=== PATIENT | female | born 1995 | race Caucasian/White ===

== ENCOUNTER 2024-01-20 09:06 | Outpatient (AMB) | payer OTHER, SELFPAY ==
--- NOTE | 2024-01-20 09:10 | A.OFFVISCC_ITS ---
Vital Signs 01/20/24 09:16 BP 120/80 Blood Pressure Location Lt brachial Position Sitting Pulse Source Pulse Oximeter Pulse Oximetry (%) 93 Oxygen Delivery Method Room Air Intake Visit Reasons: Intake HPI HPI Intake: Details: Patient presents today for eval as requirement for DCF to shut an open case She reports in September she was under stress due to financial reasons, she was out with her 5yo son trying to have a fun day with him. She had gone to a restaurant with him in the same plaza as a [employer] park that they were to go to after lunch. She reports she drank 3-4 nips to loosen up and be fun for him . She chose that amount of alcohol because she felt as though it equated approximately to 2 mixed drinks. She reports she does not drink often and overestimated what her tolerance was, and felt intoxicated. Reports she started texting friends for a ride, and was starting to look into calling an uber to get home, when police presented to the restaurant. She reports one of the restaurant staff called the marketing secretary thinking she was going to drive home. She states police brought her home and a DCF case was opened. She reports alcohol use is very infrequent, last drink was in December for her birthday when she had a glass of wine or two Only other substance use is occasional marijuana use at night to sleep No history of psychiatric hospitalizations No hx of HI/SI/self harming thoughts or behaviors Takes zoloft for anxiety Does not see a specialist at this time, uninterested in any referrals currently Allergic to sulfa drugs Takes albuterol and advair daily for asthma (controlled) Review of Systems Const Reports as per HPI Physical Exam Vital Signs: Last Vital Signs BP 120/80 01/20/24 09:16 Pulse Ox 93 01/20/24 09:16 Oxygen Delivery Method Room Air 01/20/24 09:16 Const General: cooperative and no acute distress Resp Effort & Inspection: normal respiratory effort Psych Appearance: grossly normal Mental Status: mental status grossly normal Speech and movement: Normal speech and movement present Affect: normal affect (tearful at times) Results AMB 14 Panel Urine Drug Screen Urine Marijuana (THC) Positive Last Edit by Julia Mcgrath RN on 01/20/24 09:42 Urine Cocaine Negative Last Edit by Julia Mcgrath RN on 01/20/24 09:42 Urine Morphine Negative Last Edit by Julia Mcgrath RN on 01/20/24 09:42 Urine Methamphetamine Negative Last Edit by Julia Mcgrath RN on 01/20/24 09:42 Urine Amphetamine Negative Last Edit by Julia Mcgrath RN on 01/20/24 09:42 Urine Benzodiazepine Negative Last Edit by Julia Mcgrath RN on 01/20/24 09 :42 Urine Barbiturates Negative Last Edit by Julia Mcgrath RN on 01/20/24 09:4 2 Urine Methadone Negative Last Edit by Julia Mcgrath RN on 01/20/24 09:42 Urine Buprenorphine Negative Last Edit by Julia Mcgrath RN on 01/20/24 09: 42 Urine Tricyclic Antidepressant Negative Last Edit by Julia Mcgrath RN on 01/20/24 09:42 Urine MDMA Negative Last Edit by Julia Mcgrath RN on 01/20/24 09:42 Urine Oxycodone Negative Last Edit by Julia Mcgrath RN on 01/20/24 09:42 Urine Phencyclidine Negative Last Edit by Julia Mcgrath RN on 01/20/24 09: 42 Urine Propoxyphene Negative Last Edit by Julia Mcgrath RN on 01/20/24 09:4 2 Assessment & Plan Assessment & Plan (1) Screening for alcohol problem: Code(s): Z13.39 - Encounter for screening examination for other mental health and behavioral disorders Category: Medical Plan: -Patient does not meet criteria for AUD -Follow up as needed -Instructed to call [facility] for any questions or concerns
[2024-01-20 09:16] VITALS: BP 120/80; O2SAT 93
== END 2024-01-20 09:37 | disposition home or self-care (01) ==
PROVIDERS: Visit Provider Nurse Practitioner Family
DX: F10.90 Alcohol use, unspecified, uncomplicated (principal); Z13.39 Encounter for screening examination for other mental health and behavioral disorders; Z51.81 Encounter for therapeutic drug level monitoring
CPT/HCPCS: 99204

== ENCOUNTER → 2024-01-20 09:06 | Outpatient (BNVA) | payer OTHER, SELFPAY | PROVIDERS: Visit Provider Nurse Practitioner Family | DX: Z13.39 Encounter for screening examination for other mental health and behavioral disorders (principal) | CPT/HCPCS: 80305; 99202 ==